=== PATIENT | female | born 1985 | race Caucasian/White ===

== ENCOUNTER 2019-04-19 23:43 | Inpatient (IN) | payer OTHER ==
[~2019-04-19] VITALS: Ht 165.1 cm; Wt 94.5 kg
[2019-04-20] VITALS (19 sets, daily range): BP systolic 132–180; BP diastolic 61–91; PULSE 66–91; TEMP 97.5–98.7
[2019-04-20 01:16] LABS: BASO % 0.2 % (0.0-2.0); EOS # 0.1 (0.0-0.7); EOS % 0.8 % (0-4.0); GRAN # 6.2 (1.4-6.5); GRAN % 70.4 % (42.2-75.2); HEMOGLOBIN 10.5 g/dl (12.5-16.0); LYMPH # 1.9 (1.2-3.4); LYMPH % 21.3 % (20.0-51.0); MEAN CELL VOLUME 86 fl (80.0-100.0); MEAN CORPUSCULAR HEMOGLOBIN 27 pg (27.0-31.0); MEAN CORPUSCULAR HGB CONC 32 g/dl (33.0-37.0); MONO # 0.6 (0.1-0.6); PLATELET COUNT 116 K/mm3 (130-400); RED BLOOD COUNT 3.83 M/mm3 (4.10-5.30); REDCELL DISTRIBUTION WIDTH-CV 13.9 % (11.5-14.5)
[2019-04-20 01:19] LABS: HEMATOCRIT 32.9 % (37.0-47.0)
[2019-04-20] MEDS ORDERED: PRILOSEC10 MG PO (03:24)
[2019-04-20] MEDS ORDERED: PRENATAL 191 TAB PO (03:24)
[2019-04-20] MEDS ORDERED: PROFE180 MG PO (03:25)
--- NOTE | 2019-04-20 04:50 | NUR ---
0440- DR. UMANZOR AT BEDSIDE AT THIS TIME. SVE . AROM-CLEAR AT 0419. DR. UMANZOR DISCUSSED NOT NEEDING TO GO TO THE OR AT THIS TIME YET. 0449- SVE BY Neri GROSS RN. CALLED OUT TO DR. UMANZOR FROM LABOR ROOM #2 TO NURSES STATION. 0450- SPONTANEOUS DELIVERY OF VIABLE FEMALE INFANT (BABY A) AT THIS TIME BY NURSE. DR. UMANZOR AT BEDSIDE RIGHT AFTER DELIVERY OF FEET. 0455- PATIENT TAKEN TO 0R TO DELIVERY BABY B.
--- NOTE | 2019-04-20 06:50 | NUR ---
Report given from Humberto ALEMAN. Pt alert and oriented. Pale and shaking in bed. Fundus checked, firm, new pads on and pericare done at this time. Motrin given po, see EMAR. Family at bedside.
[2019-04-20 07:42] LABS: MEAN CELL VOLUME 85 fl (80.0-100.0); MEAN CORPUSCULAR HGB CONC 33 g/dl (33.0-37.0); MEAN PLATELET VOLUME 13.9 fl (7.4-10.4); PLATELET COUNT 100 K/mm3 (130-400); RED BLOOD COUNT 3.21 M/mm3 (4.10-5.30); REDCELL DISTRIBUTION WIDTH-CV 14.2 % (11.5-14.5)
[2019-04-20 07:43] LABS: HEMATOCRIT 27.4 % (37.0-47.0); HEMOGLOBIN 9.1 g/dl (12.5-16.0); MEAN CORPUSCULAR HEMOGLOBIN 28 pg (27.0-31.0)
[2019-04-20 07:53] LABS: ALBUMIN 2.6 gm/dL (3.5-5.0); BILIRUBIN,TOTAL 1.7 mg/dL (0.0-1.0); CALCIUM 8.5 mg/dL (8.4-10.2); CREATININE, serum 0.98 (0.52-1.25); TOTAL PROTEIN 5.2 gm/dL (6.4-8.2)
--- NOTE | 2019-04-20 08:15 | NUR ---
Pt sleeping at this time. Straight catheter performed and UA sent to lab. Urine tea colored. 400ml urine returned from catheter. Pt denies any pain. Fundus firm, bleeding WNL. Pt states "I feel really tired." Will notify Dr Carrillo of lab results.
[2019-04-20 08:48] LABS: COLLECTION METHOD CATHETER
[2019-04-20 08:56] LABS: MUCOUS Present /lpf; PH 7 (5-8); SQUAMOUS EPITHELIAL None Seen /hpf; URINE APPEARANCE Hazy; URINE BACTERIA Rare /hpf; URINE BILIRUBIN Negative (NEGATIVE); URINE BLOOD 3+ (NEGATIVE); URINE COLOR Yellow; URINE GLUCOSE 1+ (NEGATIVE); URINE KETONE Negative (NEGATIVE); URINE LEUKOCYTE ESTERASE Negative (NEGATIVE); URINE NITRATE Negative (NEGATIVE); URINE PROTEIN(semi-quant) 3+ (NEGATIVE); URINE UROBILINOGEN Negative (NEGATIVE)
--- NOTE | 2019-04-20 09:30 | NUR ---
Pt requesting to be moved to room 208. Pt sitting up in bed eating snack. Pt up and ambulates half to bathroom, pt dizzy and lightheaded and nauseated. Pt to wheelchair. Pericare done and pt's own clothes on and pads in place. Pt taken to room 208 via wheelchair and to bed. Will continue to monitor.
[2019-04-20 09:41] LABS: BAND 6 % (0-10); LYMPHOCYTE 13 % (20.0-51.0); NEUTROPHILS 80 % (42.0-75.2); PLATELET ESTIMATE DECREASED (NORMAL)
--- NOTE | 2019-04-20 13:15 | NUR ---
Dr Carrillo comes out of pt's room and states she needs to use the restroom. This nurse in room and pt has had bowel movement while ambulating to bathroom. Pt voids, unable to catch in hat. Pericare done and pt back to bed with assist. Pt states she is starting to feel better. 1400:Dr Carrillo at bedside, evaluating and questions answered. New orders for labs in AM.
--- NOTE | 2019-04-20 14:30 | NUR ---
Pt calls out stating "Im bleeding." This nurse at bedside and pt states she feels gushes and also urinating at this time. Pt up to bathroom with assist and voids 700ml and has free flow bleeding saturating pad. Pericare done and pt back to bed via wheelchair with assist. Pt c/o dizziness and roaring in ears. Pt to bed and fundus massaged, firm and at the umbilicus. Lemon size clot expressed, no further free flow noted. BP checked, 109/81 pulse 106bpm. Pericare done and new pads placed. 1500:BP 132/62 pulse 91bpm. temp 98.3. 1505:Dr Carrillo called and notified. Orders received to give Hespan 500ml and then to keep NS infusing at 125ml/hr. Will keep lab orders for AM, call physician if pulse continues to rise.
--- NOTE | 2019-04-20 17:05 | NUR ---
Pt resting in bed, BP 130/78, pulse 84. Pt saturated peripad. Fundus massaged, firm. No free flow bleeding noted massage. Peripad weighed and 142ml EBL on pad. Dr Carrillo called and updated. Order received to give a dose of hemabate x 1 now and will continue to monitor bleeding and call with update. See EMAR.
--- NOTE | 2019-04-20 18:25 | NUR ---
Pt's out to desk and states she is in the bathroom. This nurse to room and pt in bathroom voiding and having bowel movment. Pericare done and pt back to bed.Peripad with small amount of bleeding. Pad changed. 1829:Report Given to Fox ALEMAN.
--- NOTE | 2019-04-20 19:22 | NUR ---
PT SPOUSE SISTER AND BABY ASLEEP WHEN NURSE ENTERS ROOM TO GIVE ZOFRAN ODT. PT ALLOWED TO REMAIN ALSEEP. IV NS AT 125/HR GRAVITY
--- NOTE | 2019-04-20 21:10 | NUR ---
LESS C/O NAUSEA SINCE PO ZOFRAN
--- NOTE | 2019-04-20 21:55 | NUR ---
HERE WITH SPOUSE , FIRM CONTRACTIONSQ 3 MIN. VERY UNCOMFORTABLE WITH. PANTING THRU. 2202 7/100/-[address] UMANZOR NOTIFIED. REQUESTS EPIDURAL. IV START, LAB DRAWS. Selina BOO NOTIFIED FOR EPIDURAL.AT 0. EFM ON. [address] UMANZOR CALLED TO ATTEND DELIVERY 2230 PEN G 5 MILLION HUNG FOR GBS POS 2234 DR UMANZOR HERE 223 AROM CLEAR. NSY STAFF HERE 2246 GOOD PUSHING EFFORT NO EPIDURAL DUE TO RAPID LABOR. MALE.
[2019-04-21] VITALS (31 sets, daily range): BP systolic 101–133; BP diastolic 52–84; PULSE 77–94; TEMP 97.6–98.7
--- NOTE | 2019-04-21 04:56 | NUR ---
IV TO INT PER ORDER DR UMANZOR. TAKING PO FLUIDS WELL. LESS NAUSEA. AMBULATES TO BR INDEPENDENTLY, COLOR IMPROVED. BF BABY. SPOUSE AND SISTER SUPPORTIVE
[2019-04-21 05:02] LABS: COLLECTION METHOD CLEAN CATCH
[2019-04-21 05:11] LABS: AMORPHOUS CRYSTAL Present /uL; PH 5 (5-8); SQUAMOUS EPITHELIAL 0-2 /hpf; URINE APPEARANCE Hazy; URINE BACTERIA Rare /hpf; URINE BILIRUBIN Negative (NEGATIVE); URINE BLOOD 3+ (NEGATIVE); URINE COLOR Yellow; URINE GLUCOSE Negative (NEGATIVE); URINE KETONE Negative (NEGATIVE); URINE LEUKOCYTE ESTERASE Negative (NEGATIVE); URINE NITRATE Negative (NEGATIVE); URINE PROTEIN(semi-quant) 2+ (NEGATIVE); URINE RBC >50 /hpf; URINE UROBILINOGEN Negative (NEGATIVE)
[2019-04-21 06:28] LABS: BASO % 0.1 % (0.0-2.0); EOS % 0.1 % (0-4.0); GRAN # 11.6 (1.4-6.5); GRAN % 78.8 % (42.2-75.2); LYMPH % 13.4 % (20.0-51.0); MEAN CELL VOLUME 85 fl (80.0-100.0); MEAN CORPUSCULAR HGB CONC 32 g/dl (33.0-37.0); MONO % 6.7 % (1.7-9.3); PLATELET COUNT 62 K/mm3 (130-400); RED BLOOD COUNT 2.21 M/mm3 (4.10-5.30); REDCELL DISTRIBUTION WIDTH-CV 14.6 % (11.5-14.5)
[2019-04-21 06:36] LABS: ALBUMIN 1.8 gm/dL (3.5-5.0); BILIRUBIN,TOTAL 0.1 mg/dL (0.0-1.0); CALCIUM 7.2 mg/dL (8.4-10.2); CREATININE, serum 1.17 (0.52-1.25); HEMATOCRIT 18.8 % (37.0-47.0); MEAN CORPUSCULAR HEMOGLOBIN 28 pg (27.0-31.0); POTASSIUM 4.3 mmol/L (3.4-5.0); TOTAL PROTEIN 3.9 gm/dL (6.4-8.2)
[2019-04-21 06:38] LABS: HEMOGLOBIN 6.1 g/dl (12.5-16.0)
--- NOTE | 2019-04-21 11:00 | NUR ---
1100: First unit of PRBC verified with Gregory Mary RN. Patient resting in bed. Initial vital signs stable and documented. IV site in left wrist flushes without difficulty and NS infusing at 30ml/hr. PRBC Transfusion begins at 1105.
--- NOTE | 2019-04-21 19:30 | NUR ---
TOLERATES UP TO BR WELL. AMBULATES WITH STANDBY ASSIST TO BR AND SINK. BF BOTH INFANTS AND VISITING WITH FAMILY. COLOR IMPROVED.
[2019-04-21 20:52] LABS: MEAN CELL VOLUME 87 fl (80.0-100.0); MEAN CORPUSCULAR HGB CONC 33 g/dl (33.0-37.0); MEAN PLATELET VOLUME 13.5 fl (7.4-10.4); PLATELET COUNT 86 K/mm3 (130-400); REDCELL DISTRIBUTION WIDTH-CV 14.3 % (11.5-14.5)
[2019-04-21 21:02] LABS: ALBUMIN 2.2 gm/dL (3.5-5.0); BILIRUBIN,TOTAL 0.6 mg/dL (0.0-1.0); CREATININE, serum 1.18 (0.52-1.25); POTASSIUM 4.4 mmol/L (3.4-5.0); TOTAL PROTEIN 4.5 gm/dL (6.4-8.2)
[2019-04-21 21:07] LABS: HEMATOCRIT 30.4 % (37.0-47.0); HEMOGLOBIN 10.1 g/dl (12.5-16.0); MEAN CORPUSCULAR HEMOGLOBIN 29 pg (27.0-31.0)
[2019-04-21 21:26] LABS: LYMPHOCYTE 16 % (20.0-51.0); NEUTROPHILS 82 % (42.0-75.2); PLATELET ESTIMATE DECREASED (NORMAL)
[2019-04-22 00:46] VITALS: BP 117/75; PULSE 88; TEMP 97.6
[2019-04-22 07:15] VITALS: BP 106/55; PULSE 77; TEMP 97.9
--- NOTE | 2019-04-22 08:40 | NUR ---
Initial visit; Parents thanked Instrument Engineer for offering congratulations and God's blessings for the of their twin daughters. Instrument Engineer thanked family for choosing [facility].
[2019-04-22] MEDS ORDERED: MOTRIN 600600 MG/TAB PO (08:49)
== END 2019-04-22 15:50 | disposition home or self-care (01) | DRG 806 ==
LOC: LDRO 23:43 → LDR 23:44 → LDRO 04-20 01:01 → LDR 04-20 01:02 → OB 04-20 01:02
PROVIDERS: Obstetrics & Gynecology; ADMIT Obstetrics & Gynecology
PROC: 10E0XZZ Delivery of Products of Conception, External Approach (ICD-10-PCS; principal; 2019-04-20)
PROC: 0HQ9XZZ Repair Perineum Skin, External Approach (ICD-10-PCS; 2019-04-20)
DX: O30.043 Twin pregnancy, dichorionic/diamniotic, third trimester (principal); O72.1 Other immediate postpartum hemorrhage; Z37.2 Twins, both liveborn; D62 Acute posthemorrhagic anemia; Z3A.37 37 weeks gestation of pregnancy; O32.1XX2 Maternal care for breech presentation, fetus 2; O24.420 Gestational diabetes mellitus in childbirth, diet controlled; O62.3 Precipitate labor; O70.0 First degree perineal laceration during delivery; O90.81 Anemia of the puerperium; O14.25 HELLP syndrome, complicating the puerperium
CPT/HCPCS: OP; J1940; J2590; J7030; J7040; J7120; P9016

== ENCOUNTER 2019-04-23 09:53 | Inpatient (IN) | payer OTHER ==
[~2019-04-23] VITALS: Ht 165.1 cm; Wt 84.6 kg
[~2019-04-23 09:53] MED LIST: MOTRIN 600600 MG/TAB PO; PRENATAL 191 TAB PO; PRILOSEC10 MG PO; PROFE180 MG PO
[2019-04-23 10:58] LABS: ALBUMIN 2.4 gm/dL (3.5-5.0); BILIRUBIN,TOTAL 0.2 mg/dL (0.0-1.0); CALCIUM 8.6 mg/dL (8.4-10.2); CREATININE, serum 0.84 (0.52-1.25); TOTAL PROTEIN 4.7 gm/dL (6.4-8.2)
[2019-04-23 11:01] LABS: COLLECTION METHOD CATHETER
[2019-04-23 11:01] LABS: BASO # 0.1 (0.0-0.2); BASO % 0.5 % (0.0-2.0); EOS # 0.1 (0.0-0.7); GRAN # 8.1 (1.4-6.5); GRAN % 73.6 % (42.2-75.2); HEMATOCRIT 29.1 % (37.0-47.0); HEMOGLOBIN 9.8 g/dl (12.5-16.0); LYMPH # 1.9 (1.2-3.4); LYMPH % 17.5 % (20.0-51.0); MEAN CELL VOLUME 87 fl (80.0-100.0); MEAN CORPUSCULAR HEMOGLOBIN 29 pg (27.0-31.0); MEAN CORPUSCULAR HGB CONC 34 g/dl (33.0-37.0); MEAN PLATELET VOLUME 13.4 fl (7.4-10.4); MONO # 0.7 (0.1-0.6); MONO % 6.2 % (1.7-9.3); PLATELET COUNT 96 K/mm3 (130-400); RED BLOOD COUNT 3.35 M/mm3 (4.10-5.30); REDCELL DISTRIBUTION WIDTH-CV 14.5 % (11.5-14.5)
[2019-04-23 11:03] LABS: TROPONIN-I 0.036 ng/mL (0.000-0.035)
[2019-04-23 11:04] LABS: INR 0.8 (0.8-3.0); PROTHROMBIN TIME 9.7 SECONDS (9.7-12.8)
[2019-04-23 11:06] LABS: PARTIAL THROMBOPLASTIN TIME 27.6 SECONDS (26.0-37.0)
[2019-04-23 11:08] LABS: MUCOUS Present /lpf; PH 5 (5-8); SQUAMOUS EPITHELIAL 0-2 /hpf; URINE APPEARANCE Clear; URINE BACTERIA Rare /hpf; URINE BILIRUBIN Negative (NEGATIVE); URINE BLOOD 2+ (NEGATIVE); URINE COLOR Yellow; URINE GLUCOSE Negative (NEGATIVE); URINE KETONE Negative (NEGATIVE); URINE LEUKOCYTE ESTERASE Negative (NEGATIVE); URINE NITRATE Negative (NEGATIVE); URINE PROTEIN(semi-quant) Negative (NEGATIVE); URINE RBC 0-2 /hpf; URINE UROBILINOGEN Negative (NEGATIVE)
--- NOTE | 2019-04-23 15:15 | NUR ---
Patient arrived to floor room 359 accompanied by -Clemente. Patient reports headache 5/10. Denies pain elsewhere. A&Ox3. Breathing even and unlabored. Has c/o of "wavy" vision. PERRLA. Lung clear. Assessment complete. Patient reports no further needs at this time. Will continue to monitor.
[2019-04-23 16:10] VITALS: BP 142/86; PULSE 71; TEMP 98
--- NOTE | 2019-04-23 18:12 | NUR ---
Patient assisted to BSC. Reports mild dizziness. Did have voided urine with two small clots. 600cc output. Patient assisted back to bed and now resting. Patient expresses no further needs at this time.
[2019-04-23 19:23] VITALS: BP 134/84; PULSE 81; TEMP 98.8
--- NOTE | 2019-04-23 19:32 | NUR ---
Resting in bed. Assessment complete. Lungs clear. Heart sounds normal. Bowels active x4. Pulses present throughout. Bilateral lower leg edema +3. INT right forearm without complications. Rating pain 3/10 due to headache. Denies needs at this time. Call light in reach.
--- NOTE | 2019-04-23 20:00 | NUR ---
Holding 2100 dose of metoprolol and vasotec due to recently given at 1800. Okay'd per Liyah. Patient VS stable at this time. Educated patient for purpose of holding medication. Patient would like to take later in evening. Okay per Liyah. Will provide around 0000 if VS stable.
[2019-04-23 23:10] VITALS: BP 135/75; PULSE 63; TEMP 97.1
[2019-04-24] VITALS (8 sets, daily range): BP systolic 125–165; BP diastolic 68–94; PULSE 62–109; TEMP 98–98.3
--- NOTE | 2019-04-24 00:05 | NUR ---
Provided patient with scheduled metoprolol and vasotec at this time. Patient tearful wanting to be home with twins. Provided emotional support. Denies other needs at this time. Will monitor.
[2019-04-24 06:16] LABS: BASO % 0.3 % (0.0-2.0); EOS # 0.1 (0.0-0.7); EOS % 1.4 % (0-4.0); GRAN # 7.2 (1.4-6.5); GRAN % 69.9 % (42.2-75.2); LYMPH # 2.1 (1.2-3.4); MEAN CELL VOLUME 87 fl (80.0-100.0); MEAN CORPUSCULAR HGB CONC 33 g/dl (33.0-37.0); MEAN PLATELET VOLUME 12.1 fl (7.4-10.4); MONO # 0.7 (0.1-0.6); MONO % 6.5 % (1.7-9.3); PLATELET COUNT 105 K/mm3 (130-400); RED BLOOD COUNT 3.21 M/mm3 (4.10-5.30); REDCELL DISTRIBUTION WIDTH-CV 14.3 % (11.5-14.5)
[2019-04-24 06:37] LABS: ALBUMIN 2.3 gm/dL (3.5-5.0); BILIRUBIN UNCONJUGATED 0.2 mg/dL (0.0-1.1); BILIRUBIN,TOTAL 0.2 mg/dL (0.0-1.0); CALCIUM 7.6 mg/dL (8.4-10.2); CREATININE, serum 0.73 (0.52-1.25); POTASSIUM 3.4 mmol/L (3.4-5.0); TOTAL PROTEIN 4.7 gm/dL (6.4-8.2)
[2019-04-24 06:52] LABS: HEMOGLOBIN 9.2 g/dl (12.5-16.0); MEAN CORPUSCULAR HEMOGLOBIN 29 pg (27.0-31.0)
[2019-04-24 07:02] LABS: TROPONIN-I 0.035 ng/mL (0.000-0.035)
--- NOTE | 2019-04-24 07:54 | NUR ---
Patient tearful throughout night. Would like to be home with twins. Otherwise uneventful. Report given to LOVE Chapman
--- NOTE | 2019-04-24 10:44 | NUR ---
Pt alert and oriented and has friend at bedside. Pt rates pain 3/10 headache. Pt SBA to restroom d/t dizziness with standing. Pt IV patent and no redness or infiltration noted. Pt breast pumping with colostrum milk noted. Pt denies engorgement or breast pain. Pt remains on fluid restriction. Pt has call light in reach and denies further needs.
--- NOTE | 2019-04-24 11:45 | NUR ---
First visit from the drum builder. No needs right now.
--- NOTE | 2019-04-24 16:50 | NUR ---
TITI met with the patient and her , Clemente to discuss a discharge plan. The pt lives in [place] with her Clemente and their children. The pt does not use DME and reports at this time she does need some assistance showering and her assists. The pt does not have a PCP. TITI provided a list of [facility] providers. The pt receives her medications from [facility] in with no difficulties. The pt does not have advanced directives in the EMR and was not interested in obtaining a DPOA-HC. The pt plans to return home upon discharge. There are no additional needs at this time.
--- NOTE | 2019-04-24 17:47 | NUR ---
Pt reports that headache has gone away and denies pain. Pt and pumping. Pt spouse and babies present late this afternoon. Pt remains SBA for precaution at this time. Pt BLE remains but decreasing since yesterday. Pt IV patent and free of complications. Pt denies needs at this time and has call light in reach.
--- NOTE | 2019-04-24 21:00 | NUR ---
PT ADVISED THAT SHE WAS EATING A SANDWICH AND FELT IT GET STUCK IN HER THROAT AND SHE COULD NOT BREATH. PT ALSO ADVISED THAT SHE DOES NOT DO WELL WITH DRY FOODS. PT ADVISED US SHE FELT THE FOOD JUST GO DOWN AND NOT SURE RIGHT NOW IF THROAT IS CLEAR.
[2019-04-25 04:29] VITALS: BP 127/65; PULSE 62; TEMP 98.3
[2019-04-25 07:15] LABS: BASO % 0.4 % (0.0-2.0); EOS # 0.1 (0.0-0.7); GRAN # 7.7 (1.4-6.5); GRAN % 73.2 % (42.2-75.2); LYMPH % 18.6 % (20.0-51.0); MEAN CELL VOLUME 88 fl (80.0-100.0); MEAN CORPUSCULAR HGB CONC 33 g/dl (33.0-37.0); MEAN PLATELET VOLUME 12.3 fl (7.4-10.4); MONO # 0.6 (0.1-0.6); MONO % 6.1 % (1.7-9.3); PLATELET COUNT 120 K/mm3 (130-400); RED BLOOD COUNT 3.16 M/mm3 (4.10-5.30)
[2019-04-25 07:24] LABS: HEMATOCRIT 27.8 % (37.0-47.0); HEMOGLOBIN 9.1 g/dl (12.5-16.0); MEAN CORPUSCULAR HEMOGLOBIN 29 pg (27.0-31.0)
[2019-04-25 07:28] LABS: ALBUMIN 2.5 gm/dL (3.5-5.0); BILIRUBIN,TOTAL 0.3 mg/dL (0.0-1.0); CALCIUM 7.4 mg/dL (8.4-10.2); CREATININE, serum 0.65 (0.52-1.25); POTASSIUM 3.4 mmol/L (3.4-5.0); TOTAL PROTEIN 4.8 gm/dL (6.4-8.2)
[2019-04-25 07:29] VITALS: BP 131/79; PULSE 62; TEMP 98.1
--- NOTE | 2019-04-25 08:45 | NUR ---
Assessment complete. Patient A&Ox3, denies pain and discomfort, patient states that she is just ready to get home. VSS. INT CDI. Patient is and pumping. No further needs expressed from patient. Call light within reach
[2019-04-25] MEDS ORDERED: TOPROL XL 50MG50 MG PO (10:11)
[2019-04-25] MEDS ORDERED: VASOTEC 5MG5 MG/TAB PO (10:12)
[2019-04-25] MEDS ORDERED: LASIX 20MG TABL20 MG PO (10:13)
--- NOTE | 2019-04-25 11:42 | NUR ---
Discharge paperwork reviewed with patient. Patient verbalized an understanding. IV removed, tip intact, gauze applied, patient tolerated well. RT [facility] and provided patient with education. Discharge paperwork and personal belongings with patient. Nurse walked patient and family outside. No further needs expressed from patient.
== END 2019-04-25 11:49 | disposition home or self-care (01) | DRG 776 ==
LOC: COL.ER 09:53 → MEDICAL 12:55
PROVIDERS: Emergency Medicine; Physician Assistant; ADMIT Family Medicine
DX: O90.3 Peripartum cardiomyopathy (principal); J90 Pleural effusion, not elsewhere classified; O90.89 Other complications of the puerperium, not elsewhere classified; O72.3 Postpartum coagulation defects; D69.6 Thrombocytopenia, unspecified; Z88.0 Allergy status to penicillin; E87.6 Hypokalemia; O9A.23 Injury, poisoning and certain other consequences of external causes complicating the puerperium; T50.905A Adverse effect of unspecified drugs, medicaments and biological substances, initial encounter; Y92.230 Patient room in hospital as the place of occurrence of the external cause; R78.9 Finding of unspecified substance, not normally found in blood
CPT/HCPCS: 99223-AI; 99232-AI; 99239; J1940; Q9967

== ENCOUNTER 2019-04-28 09:42 | Emergency (ER) | payer OTHER ==
[~2019-04-28] VITALS: Ht 165.1 cm; Wt 80.3 kg
[~2019-04-28 09:42] MED LIST changes: +LASIX 20MG TABL20 MG PO; +TOPROL XL 50MG50 MG PO; +VASOTEC 5MG5 MG/TAB PO
[2019-04-28 09:50] VITALS: BP 157/79; TEMP 98
[2019-04-28 10:25] LABS: BASO # 0.1 (0.0-0.2); BASO % 0.7 % (0.0-2.0); EOS # 0.2 (0.0-0.7); EOS % 1.8 % (0-4.0); GRAN % 75.9 % (42.2-75.2); LYMPH # 1.2 (1.2-3.4); LYMPH % 13.4 % (20.0-51.0); MEAN CELL VOLUME 88 fl (80.0-100.0); MEAN CORPUSCULAR HGB CONC 33 g/dl (33.0-37.0); MEAN PLATELET VOLUME 11.1 fl (7.4-10.4); MONO # 0.7 (0.1-0.6); MONO % 7.5 % (1.7-9.3); PLATELET COUNT 190 K/mm3 (130-400); RED BLOOD COUNT 3.41 M/mm3 (4.10-5.30); REDCELL DISTRIBUTION WIDTH-CV 15.1 % (11.5-14.5)
[2019-04-28 10:27] LABS: HEMATOCRIT 29.9 % (37.0-47.0); HEMOGLOBIN 9.8 g/dl (12.5-16.0); MEAN CORPUSCULAR HEMOGLOBIN 29 pg (27.0-31.0)
[2019-04-28 10:37] LABS: BILIRUBIN,TOTAL 0.4 mg/dL (0.0-1.0); C-REACTIVE PROTEIN 5.9 mg/dL (0.0-0.9); CALCIUM 8.3 mg/dL (8.4-10.2); CREATININE, serum 0.64 (0.52-1.25); POTASSIUM 3.4 mmol/L (3.4-5.0); TOTAL PROTEIN 5.6 gm/dL (6.4-8.2)
[2019-04-28 11:22] LABS: COLLECTION METHOD CATHETER
[2019-04-28 11:34] LABS: MUCOUS Present /lpf; PH 6 (5-8); SQUAMOUS EPITHELIAL None Seen /hpf; URINE APPEARANCE Hazy; URINE BACTERIA Rare /hpf; URINE BILIRUBIN Negative (NEGATIVE); URINE BLOOD 2+ (NEGATIVE); URINE COLOR Yellow; URINE GLUCOSE Negative (NEGATIVE); URINE KETONE Negative (NEGATIVE); URINE LEUKOCYTE ESTERASE 1+ (NEGATIVE); URINE NITRATE Negative (NEGATIVE); URINE PROTEIN(semi-quant) 2+ (NEGATIVE); URINE UROBILINOGEN Negative (NEGATIVE)
[2019-04-28] MEDS ORDERED: MACROBID 1100 MG/CAP PO (12:24)
[2019-04-28 12:35] VITALS: PULSE 64
== END 2019-04-28 12:35 | disposition home or self-care (01) ==
LOC: COL.ER 09:42
PROVIDERS: Nurse Practitioner
DX: N39.0 Urinary tract infection, site not specified (principal); Z90.49 Acquired absence of other specified parts of digestive tract; Z88.0 Allergy status to penicillin
CPT/HCPCS: J2270; J2405